=== PATIENT | male | born 1970 | race Asian ===

== ENCOUNTER 2022-09-26 08:48 | Outpatient (CLI) | payer BC, SELFPAY ==
--- NOTE | ~2022-09-26 | XR_ITS ---
EXAMINATION: XR chest 2V DATE: 09/26/2022 09:22 INDICATION: Cough TECHNIQUE: PA and lateral views of the chest are obtained. COMPARISON: None available FINDINGS: The lungs are free of acute opacities. No pleural effusion or pneumothorax. The cardiomedia stinal silhouette is normal. There is moderate thoracic spondylosis. IMPRESSION: 1. No acute cardiopulmonary abnormality. Reviewed, dictated and finalized at location B. 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
--- NOTE | ~2022-09-26 | XR_ITS ---
EXAMINATION: XR lumbar spine 2-3V DATE: 09/26/2022 09:23 INDICATION: Low back pain TECHNIQUE: Anteroposterior and lateral views of the lumbar spine, and cone-down lateral view of the l umbosacral junction were obtained. COMPARISON: None. FINDINGS: Bone alignment is normal. There is no fracture. The vertebral body heights are maintained. There is severe facet joint osteoarthritis at L5-S1. Small degenerative osteophytes project from the anterior endplates of multiple vertebral bodies. The bowel gas pattern is unremarkable. A moderate vo lume of colonic stool is present. IMPRESSION: 1. Mild to moderate lower lumbar spondylosis without acute findings. Reviewed, dictated and finalized at location B. STERED NURSE FLOAT POOL
--- NOTE | ~2022-09-26 | XR_ITS ---
EXAMINATION: XR cervical spine 4-5V DATE: 09/26/2022 09:22 INDICATION: Neck pain. TECHNIQUE: 4 views of cervical spine were obtained. COMPARISON: None. FINDINGS: There is 3 degrees levocurvature of the cervical spine. Vertebral body heights and interver tebral disc heights are normal. There is multilevel mild facet joint osteoarthritis. No central canal stenosis or prevertebral soft tissue swelling. IMPRESSION: 1. Mild cervical spondylosis. Reviewed, dictated and finalized at location A. 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
[2022-09-26 10:07] LABS: Hematocrit 46.6 % (42.0-52.0); Hemoglobin 16.4 g/dL (14.0-18.0); Mean Corpuscular HGB Conc 35.2 g/dl (32-36); Mean Corpuscular Hemoglobin 30.8 pg (26-34); Mean Corpuscular Volume 87.4 fl (80-100); Mean Platelet Volume 9.9 fl (7.4-10.4); Platelet Count Result 202 k/mm3 (150-375); Red Blood Count 5.33 M/mm3 (4.6-6.20); Red Cell Distribution Width 12.3 % (11.5-14.5)
[2022-09-26 10:21] LABS: Alanine Aminotransferase 26 U/L (6-50); Albumin Level 4.4 g/dL (3.5-5.1); Alkaline Phosphatase 86 U/L (38-126); Anion Gap 6 mmol/L (8-16); Aspartate Amino Transferase 24 U/L (17-59); Bilirubin,Total 0.5 mg/dL (0.2-1.3); Blood Urea Nitrogen 15 mg/dL (9-20); Calcium 8.7 mg/dL (8.4-10.2); Carbon Dioxide 26 mmol/L (22-30); Chloride 106 mmol/L (98-107); Cholesterol 230 mg/dL (0-200); Estimated Glomerular Filt Rate > 60; Glucose 99 mg/dL (65-110); HDL Direct 33 mg/dL; Sodium 138 mmol/L (137-145); Triglycerides 229 mg/dL (<150)
[2022-09-26 10:29] LABS: Hemoglobin A1C 5.3 % (<5.7)
[2022-09-26 10:32] LABS: LDL Cholesterol Direct 131 mg/dL
[2022-09-26 10:42] LABS: Influenza A QL RT-PCR Negative (Negative); Influenza B QL RT-PCR Negative (Negative); RSV RNA, RT-PCR Negative (Negative); SARS-CoV-2 RNA PCR Negative
[2022-09-26 10:52] LABS: Prostate Specific Antigen 0.9 ng/mL (< OR = 4.0)
[2022-09-26 10:54] LABS: Free T4 Free Thyroxine 0.98 ng/mL (0.78-2.19); Vitamin D 25 Hydroxy 24.2 ng/mL
[2022-09-26 11:01] LABS: Creatinine Urine 126.3 mg/dL
[2022-09-26 11:14] LABS: MALB Creatinine Ratio < 4.8 mg/g (0-30); Microalbumin Urine Random < 6.0 mg/L (0-16.7)
== END 2022-09-26 08:49 | disposition home or self-care (01) ==
PROVIDERS: PCP Emergency Medicine; Visit Provider Emergency Medicine
DX: Z00.00 Encounter for general adult medical examination without abnormal findings (principal); M47.816 Spondylosis without myelopathy or radiculopathy, lumbar region; M47.812 Spondylosis without myelopathy or radiculopathy, cervical region; R05.9 Cough, unspecified; J06.9 Acute upper respiratory infection, unspecified; J40 Bronchitis, not specified as acute or chronic; R32 Unspecified urinary incontinence; Z20.822 Contact with and (suspected) exposure to COVID-19
CPT/HCPCS: 36415; 71046; 72050; 72100; 80053; 80061; 82043; 82306; 83036; 84153; 84439; 84443; 85027; 87637

== ENCOUNTER → 2022-12-19 16:59 | Outpatient (CLI) | payer BC, SELFPAY ==
--- NOTE | ~2022-12-19 | XR_ITS ---
EXAMINATION: XR chest 2V Exam Date/Time: 12/19/2022 17:10 CDT HISTORY: COUGH 4 DAYS Comparison: 09/26/2022. RESULT: Lines, tubes, and devices: None. Lungs and pleura: Clear. Cardiomediastinal silhouette: Stable. Other: No acute osseous or upper abdominal finding. IMPRESSION: No acute cardiopulmonary process. Reviewed, dictated and finalized at location K.
== END ==
PROVIDERS: PCP Emergency Medicine; Visit Provider Emergency Medicine
DX: R05.9 Cough, unspecified (principal)
CPT/HCPCS: 71046

== ENCOUNTER → 2023-11-20 12:19 | Outpatient (CLI) | payer BC, SELFPAY ==
--- NOTE | ~2023-11-20 | XR_ITS ---
EXAMINATION: XR chest 2V 11/20/2023 12:34 INDICATION: Cough for 2 months PROCEDURE: 2 view chest COMPARISON: 12/19/2022 FINDINGS: The lungs are clear. The cardiomediastinal silhouette is within normal limits. There are no pleural effusions. There is no pneumothorax suspected. IMPRESSION: 1: NO ACUTE CARDIOPULMONARY DISEASE. Reviewed, dictated and finalized at location B.
== END ==
LOC: EXPCRAD 12:22
PROVIDERS: PCP Emergency Medicine; Visit Provider Emergency Medicine
DX: R05.9 Cough, unspecified (principal)
CPT/HCPCS: 71046

== ENCOUNTER 2023-12-22 10:11 | Outpatient (CLI) | payer BC, SELFPAY ==
[2023-12-22 10:55] LABS: Hematocrit 47.6 % (42.0-52.0); Hemoglobin 16.1 g/dL (14.0-18.0); Mean Corpuscular HGB Conc 33.8 g/dl (32-36); Mean Corpuscular Hemoglobin 29.8 pg (26-34); Mean Platelet Volume 9.2 fl (7.4-10.4); Platelet Count Result 287 k/mm3 (150-375); Red Blood Count 5.41 M/mm3 (4.6-6.20); Red Cell Distribution Width 12.3 % (11.5-14.5)
[2023-12-22 10:57] LABS: Appearance Urine Clear (Clear); Bilirubin Urine Negative (Negative); Blood Urine Negative (Negative); Color Urine Yellow (Yellow); Glucose Urine UA Negative (Negative); Ketones Urine Negative (Negative); Leukocyte Esterase Ur Negative LEU/UL (Negative); Nitrate Urine Negative (Negative); Protein Urine Negative (Negative); Specific Grav Ur 1.021 (1.001-1.035); Urobilinogen Urine 0.2 mg/dL (<2.0)
[2023-12-22 11:05] LABS: Add Urine Microscopic? NO
[2023-12-22 11:06] LABS: Alanine Aminotransferase 42 U/L (6-50); Albumin Level 5.1 g/dL (3.5-5.1); Alkaline Phosphatase 85 U/L (38-126); Anion Gap 9 mmol/L (4-12); Aspartate Amino Transferase 31 U/L (17-59); Bilirubin,Total 0.9 mg/dL (0.2-1.3); Blood Urea Nitrogen 24 mg/dL (9-20); Calcium 10.2 mg/dL (8.4-10.2); Carbon Dioxide 27 mmol/L (22-30); Chloride 104 mmol/L (98-107); Cholesterol 221 mg/dL (0-200); Estimated Glomerular Filt Rate > 60; Glucose 102 mg/dL (65-110); HDL Direct 42 mg/dL; Potassium 4.1 mmol/L (3.4-5.0); Sodium 140 mmol/L (137-145); Triglycerides 108 mg/dL (<150)
[2023-12-22 11:16] LABS: LDL Cholesterol Direct 153 mg/dL
[2023-12-22 11:26] LABS: Creatinine Urine 133.3 mg/dL
[2023-12-22 11:31] LABS: MALB Creatinine Ratio 4.6 mg/g (0-30); Microalbumin Urine Random 6.1 mg/L (0-16.7)
[2023-12-22 11:35] LABS: Prostate Specific Antigen 2.5 ng/mL (< OR = 4.0)
[2023-12-22 11:42] LABS: Hemoglobin A1C 5.4 % (<5.7)
[2023-12-22 11:43] LABS: Vitamin D 25 Hydroxy 29.9 ng/mL
== END 2023-12-22 10:12 | disposition home or self-care (01) ==
LOC: ANHLAB 10:13
PROVIDERS: PCP Emergency Medicine; Visit Provider Emergency Medicine
DX: E78.5 Hyperlipidemia, unspecified (principal); E55.9 Vitamin D deficiency, unspecified; R39.15 Urgency of urination; J06.9 Acute upper respiratory infection, unspecified
CPT/HCPCS: 36415; 80053; 80061; 81003; 82043; 82306; 82785; 83036; 84153; 84439; 84443; 85027; 86003

== ENCOUNTER 2024-01-09 11:51 | Outpatient (CLI) | payer BC, SELFPAY ==
[2024-01-09 12:27] LABS: Anion Gap 9 mmol/L (4-12); Blood Urea Nitrogen 19 mg/dL (9-20); Calcium 9.5 mg/dL (8.4-10.2); Carbon Dioxide 25 mmol/L (22-30); Chloride 106 mmol/L (98-107); Estimated Glomerular Filt Rate > 60; Glucose 120 mg/dL (65-110); Potassium 3.8 mmol/L (3.4-5.0); Sodium 140 mmol/L (137-145)
[2024-01-11 02:38] LABS: Protein, Total 7.2 g/dL (6.1-8.1)
[2024-01-11 15:14] LABS: Albumin 4.4 g/dL (3.8-4.8); Alpha 1 Globulin 0.2 g/dL (0.2-0.3); Alpha 2 Globulin 0.5 g/dL (0.5-0.9); Beta 1 Globulin 0.5 g/dL (0.4-0.6); Gamma Globulin 1.3 g/dL (0.8-1.7)
== END 2024-01-09 11:52 | disposition home or self-care (01) ==
LOC: ANHLAB 11:54
PROVIDERS: PCP Emergency Medicine; Visit Provider Emergency Medicine
DX: R79.9 Abnormal finding of blood chemistry, unspecified (principal); R77.9 Abnormality of plasma protein, unspecified
CPT/HCPCS: 36415; 80048; 84155; 84165

== ENCOUNTER 2025-01-02 10:09 | Outpatient (CLI) | payer BC, SELFPAY ==
--- OUTSIDE RECORDS SUMMARY | 2025-01-02 10:24 | XMS_ITS | Continuity of Care Document ---
Author Organization [facility] Address [address] [place] [phone] Phone Care Team Providers Care Pool Finisher Name Role Phone Kendall Galaviz MD Unavailable Unavailable Allergies, Adverse Reactions, Alerts Substance Reaction Status Criticality No Known Allergies Active No Inform ation Medications Medication Instructions Dosage Effective Dates (start - stop) Status Comments miconazole nitrate 2 % Topical Cream apply by topical route 2 times every day to the affected area(s) in the morning and evening 0.00 - Active Vitamin D 2 50,000unit Oral CAPSULE take 1 capsule by oral route every week - Active ibuprofen 200 mg tablet take 1 tablet by oral route every 6 hours as needed with food 200 MG - Active Procedures Procedure Date Offic Cons New/estab Mod Advance Directives Directive Yes / No Effective Date File Name No Information Encounters Encounter Description Practice Location Reason(s) For Visit Diagnoses Date Provider Providers Copied on Encounter [facility], [address] [place] [address], [id number] tel:[phone] [facility] No Information 9 Anastacia Argueta. [address] [place] [address], [id number] , [place]. tel:[phone] Offic Cons [facility]estab [facility], [address] [place] [address], [id number] tel:[phone] [facility] Rash, oth nonspecific skin eruption 3 Anastacia Argueta. [address] [place] [address], [id number] , [place]. tel:[phone] Family History Family Member Type Diagnosis Age At Onset No Information Payers Payer name Insurance type Covered green party ID Authoriza tion(s) No Information Social History Type Description Quantity Date Captured Comments Sex Male Smoking Status No Information Chief Complaint And Reason For Visit No Information Reason For Referral Reason For Referral No Information History Of Present Illness Encounter Date Complaint History Of Prese nt Illness No Information Functional Status Date Functional Assessmen t No Information Instructions Date Instruction Additional Infor mation No Information Assessments Type Assessment Date No Information Patient Care Teams Name Effective Dates (start - stop) Status Members No Information
--- OUTSIDE RECORDS SUMMARY | 2025-01-02 10:24 | XMS_ITS | Clinical Summary ---
Author Organization [facility] Address [facility] [place] [address] Care Team Providers Care Mold Preparer Name Role Phone Silviano Wise MD Primary Care Provider [phone] Allergies No known active allergies Medications cyclobenzaprine (FLEXERIL) 5 MG tablet every 12 (twelve) hours. Active tamsulosin (FLOMAX) 0.4 MG Cap tamsulosin 0.4 mg capsule TAKE 1 CAPSULE BY MOUTH ONCE DAILY AT BEDTIME FOR 30 DAYS Active omega-3 fatty acid (FISH OIL) 500 MG capsule Take 1 capsule (500 mg total) by mouth daily. Active Active Problems No known active problems Family History Medical History Relation Comments COPD Father Diabetes Sister pre-diabetes Relation Status Comments Daughter 1 Alive Daughter 2 Alive Daughter 3 Alive Father (Age 72) of lung p adenikelems Mother (Age 69) in sleep Sister Son Alive Social History Tobacco Use Types Packs/Day Years Used Date Smoking Tobacco: Never Smokeless Tobacco: Never Tobacco Cessation:Counseling Given: No Comments:not a smoker Alcohol Use Standard Drinks/Week Comments Never 0 (1 standard drink = 0.6 oz pur e alcohol) AUDIT-C Answer Date Recorded Q1: How often do you have a drink containing alc ohol? 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 Gender Identity Not on file Sexual Orientation Not on file Last Filed Vital Signs Vital Sign Reading Time Taken Comments Blood Pressure 145/79 12/13/2023 9:19 AM CDT Pulse 94 12/13/2023 9:19 AM CDT Temperature 37.3 C (99.1 F) 12/13/2023 9:19 AM CDT Respiratory Rate 20 12/13/2023 9:19 AM CDT Oxygen Saturation 98% 12/13/2023 9:19 AM CDT Inhaled Oxygen Concentration - - Weight 99.8 kg (220 lb) 12/13/2023 9:19 AM CDT Height 185.4 cm (6' 1 ) 12/13/2023 9:19 AM CDT Body Mass Index 29.03 12/13/2023 9:19 AM CDT Plan of Treatment Health Maintenance Due Date Last Done Comments Colorectal Cancer Screening Colonoscopy (10 Years) 1968 Annual Physical 1971 Hepatitis C 1986 DTaP, Tdap and Td Vaccines ( 1 - Tdap) 1987 Hepatitis B Vaccines (1 of 3 - 19+ 3-dose series) 1987 Pneumococcal Vaccine: 50+ Years (1 of 1 - PCV) 2018 Zoster Vaccines (1 of 2) 2018 COVID-19 Vaccine (3 - 2023-2 5 season) 2024 01/08/2021, 12/06/2020 Meningococcal B Vaccine Aged Out No l onger eligible based on patient's age to complete this topic Meningococcal Vaccine Aged Out No krystina dustin eligible based on patient's age to complete this topic RSV Immunizations Under 20 Months Aged Out No longer eligible b ased on patient's age to complete this topic Medical Devices Implanted Type Area Sharepoint Admin Device Identifier Shelf Expiration Date Model / Serial / Lot K-Wire 0.035 Implanted:Qty: 1 on 03/12/2021 by Femi Arndt MD at [facility] Wire Left: Finger [employer] 10/02/2023 Insurance Care Teams Mold Preparer Relationship Specialty Start Date End Date Silviano Wise MD [address] [place] [id number] PCP - General FAMILY PRACTICE 12/13/23
[2025-01-02 10:48] LABS: Add Urine Microscopic? NO; Appearance Urine Clear (Clear); Bilirubin Urine Negative (Negative); Blood Urine Negative (Negative); Color Urine Yellow (Yellow); Glucose Urine UA Negative (Negative); Ketones Urine Negative (Negative); Leukocyte Esterase Ur Negative LEU/UL (Negative); Nitrate Urine Negative (Negative); Protein Urine Negative (Negative); Specific Grav Ur 1.019 (1.001-1.035); Urobilinogen Urine 0.2 mg/dL (<2.0)
[2025-01-02 10:55] LABS: Hematocrit 44.5 % (42.0-52.0); Mean Corpuscular HGB Conc 33.7 g/dl (32-36); Mean Corpuscular Hemoglobin 29.9 pg (26-34); Mean Corpuscular Volume 88.6 fl (80-100); Platelet Count Result 187 k/mm3 (150-375); Red Blood Count 5.02 M/mm3 (4.6-6.20)
[2025-01-02 11:10] LABS: Alanine Aminotransferase 30 U/L (6-50); Albumin Level 4.7 g/dL (3.5-5.1); Alkaline Phosphatase 81 U/L (38-126); Anion Gap 9 mmol/L (4-12); Aspartate Amino Transferase 25 U/L (17-59); Blood Urea Nitrogen 20 mg/dL (9-20); Calcium 8.8 mg/dL (8.4-10.2); Carbon Dioxide 25 mmol/L (22-30); Chloride 105 mmol/L (98-107); Cholesterol 163 mg/dL (0-200); Estimated Glomerular Filt Rate > 60; Glucose 97 mg/dL (65-110); HDL Direct 38 mg/dL; Potassium 4.1 mmol/L (3.4-5.0); Sodium 139 mmol/L (137-145); Triglycerides 100 mg/dL (<150)
[2025-01-02 11:21] LABS: LDL Cholesterol Direct 91 mg/dL
[2025-01-02 11:25] LABS: Free T4 Free Thyroxine 0.93 ng/dL (0.78-2.19); Vitamin D 25 Hydroxy 28.1 ng/mL
[2025-01-02 11:32] LABS: Creatinine Urine 97.3 mg/dL
[2025-01-02 11:42] LABS: Prostate Specific Antigen 1.1 ng/mL (< OR = 4.0)
[2025-01-02 11:43] LABS: MALB Creatinine Ratio < 6.2 mg/g (0-30); Microalbumin Urine Random < 6.0 mg/L (0-16.7)
[2025-01-02 12:56] LABS: Hemoglobin A1C 5.5 % (<5.7)
== END 2025-01-02 10:10 | disposition home or self-care (01) ==
LOC: ANHLAB 10:10
PROVIDERS: PCP Emergency Medicine; Visit Provider Emergency Medicine
DX: M54.50 Low back pain, unspecified (principal); Z00.00 Encounter for general adult medical examination without abnormal findings; E78.5 Hyperlipidemia, unspecified
CPT/HCPCS: 36415; 80053; 80061; 81003; 82043; 82306; 83036; 84153; 84439; 84443; 85027

== ENCOUNTER 2025-01-21 16:29 | Outpatient (CLI) | payer BC, SELFPAY ==
--- NOTE | ~2025-01-21 | XR_ITS ---
CHEST RADIOGRAPH, PA AND LATERAL CLINICAL HISTORY: Cough and congestion . COMPARISON: 11/20/2023 TECHNIQUE: PA and lateral views of the chest. FINDINGS The cardiomediastinal silhouette is unremarkable. The lungs are clear. Visualized osseous structures and soft tissues are unremarkable. IMPRESSION: No focal infiltrate or effusion. Reviewed, dictated and finalized at location A.
--- OUTSIDE RECORDS SUMMARY | 2025-01-21 16:35 | XMS_ITS | CONTINUITY OF CARE DOCUMENT ---
Author Name nicolette will Address Unknown Organization [facility] Address [address] [place] [address] Phone [phone] Care Team Providers Care Desk Operator Name Role Phone Brice Nickerson MD Unavailable [phone] ALEXIA ROBERSON MD Unavailable [phone] INSURANCE PROVIDERS Payer name Policy type / Coverage type [place] red libertarian ID [facility] [id number]
--- OUTSIDE RECORDS SUMMARY | 2025-01-21 16:35 | XMS_ITS | Continuity of Care Document ---
Author Organization [facility] Address [address] [place] [phone] Phone Care Team Providers Care Suede Cleaner Name Role Phone Kendall Galaviz MD Unavailable [...] Diagnoses Date Provider Providers Copied on Encounter [facility] [employer] [facility], [address] [place] [address], [id number] tel:[phone] [facility] No Information 9 Anastacia Argueta. [address] [place] [address], [id number] , [place]. tel:[phone] Offic Cons New/estab Mod [facility] [employer] [facility], [address] [place] [address], [id number] tel:[phone] [facility] Rash, oth nonspecific skin eruption 3 Anastacia Argueta. [address] [place] [address], [id number] , [place]. tel:[phone] Family History Family Member Type Diagnosis Age At Onset No Information Payers Payer name Insurance type Covered alliance party ID Authoriza tion(s) No Information Social [...]
[2025-01-23 16:53] LABS: Alternaria alternata IgE <0.10 kU/L; Alternaria alternata IgE Class 0; Aspergillus fumigatus IgE <0.10 kU/L; Bermuda Grass (G2) IgE <0.10 kU/L; Bermuda Grass (G2) IgE Class 0; Cat Dander IgE <0.10 kU/L; Cat Dander IgE Class 0; Cladosporium herbarum IgE <0.10 kU/L; Cladosporium herbarum IgE Clas 0; Cockroach IgE <0.10 kU/L; Cockroach IgE Clas 0; Common Ragweed IgE Class 0; Cottonwood IgE <0.10 kU/L; Dermatophagoides Farinae Class 0; Dermatophagoides Pterony Class 0; Dermatophagoides Pteronyssinus <0.10 kU/L; Dog Dander IgE <0.10 kU/L; Elm (T8) IgE <0.10 kU/L; Elm (T8) IgE Class 0; Hickory/Pecan IgE <0.10 kU/L; Hickory/Pecan IgE Class 0; Immunoglobulin E 29 kU/L (<OR=114); Maple Box Elder IgE Class 0; Mountain Cedar IgE <0.10 kU/L; Mountain Cedar IgE Class 0; Mouse Urine Proteins IgE <0.10 kU/L; Mouse Urine Proteins IgE Class 0; Oak IgE <0.10 kU/L; Peniciliium notatum class 0; Penicillium notatum (M1) IgE <0.10 kU/L; Rough Marsh <0.10 kU/L; Rough Marsh Elder Class 0; Rough Pigweed (W14) IgE <0.10 kU/L; Rough Pigweed (W14) IgE Class 0; Russian Thistle <0.10 kU/L; Sycamore IgE <0.10 kU/L; Sycamore IgE Class 0; Timothy Grass IgE <0.10 kU/L; Timothy Grass IgE Class 0; Walnut Tree IgE <0.10 kU/L; Walnut Tree IgE Class 0; White Ash IgE Class 0; White Mulberry IgE <0.10 kU/L; White Mulberry IgE Class 0
[2025-01-23 17:04] LABS: Almond (F20) IgE <0.10 kU/L; Brazil Nut (f18) <0.10 kU/L; Brazil Nut (f18) Class 0; Cashew Nut (F202) IgE <0.10 kU/L; Cashew Nut (F202) IgE Class 0; Codfish (F3) IgE <0.10 kU/L; Codfish (F3) IgE Class 0; Cow's Milk (F2) IgE <0.10 kU/L; Cow's Milk (F2) IgE Class 0; Egg White (F1) IgE <0.10 kU/L; Egg White (F1) IgE Class 0; Hazelnut (F17) IgE 0.11 kU/L; Hazelnut (F17) IgE Class 0/1; Macadamia Nut (rf345) <0.10 kU/L; Macadamia Nut (rf345) Class 0; Peanut (F13) IgE <0.10 kU/L; Peanut (F13) IgE Class 0; Salmon (F41) IgE <0.10 kU/L; Salmon (F41) IgE Class 0; Scallop (F338) IgE <0.10 kU/L; Scallop (F338) IgE Class 0; Sesame Seed <0.10 kU/L; Shrimp (F24) IgE <0.10 kU/L; Soybean (F14) IgE <0.10 kU/L; Soybean (F14) IgE Class 0; Tuna (F40) <0.10 kU/L; Tuna (F40) Class 0; Walnut (F256) IgE <0.10 kU/L; Walnut (F256) IgE Class 0; Wheat (F4) IgE <0.10 kU/L; Wheat (F4) IgE Class 0
== END 2025-01-21 16:30 | disposition home or self-care (01) ==
LOC: ANHLAB 16:33
PROVIDERS: PCP Emergency Medicine; Visit Provider Emergency Medicine
DX: R05.9 Cough, unspecified (principal)
CPT/HCPCS: 36415; 71046; 82785; 86003

== ENCOUNTER 2025-02-07 11:49 | Emergency (ER) | payer BC, SELFPAY ==
--- NOTE | ~2025-02-07 | CT_ITS ---
EXAMINATION: CTA chest PE protocol DATE: 02/07/2025 13:55 INDICATION: Cough and chest tightness TECHNIQUE: Computed tomography (CT) pulmonary angiogram of the chest was performed with 100 mL Omnipa que-350 intravenous contrast. Additional 3D reconstructions utilizing coronal maximum intensity proje ction (MIP) were performed. Automated exposure control and iterative reconstruction technique were em ployed. The dose-length product was 12.47 mGy-cm. COMPARISON: None FINDINGS: No pulmonary embolism. Sensitivity decreased in some of the smaller subsegmental pulmonary arteries i n the mid to lower lungs due to mild to moderate basilar predominant respiratory motion artifact hear t size is normal. No pneumonia, pulmonary edema, pleural effusion or pneumothorax. No pericardial eff usion. Vascular is normal in caliber. No pathologically enlarged thoracic lymphadenopathy./Upper abdo men is unremarkable. Mild thoracic spondylosis with chronic mild anterior wedging of a few mid to low er thoracic vertebral bodies. Mild thoracic spondylosis with bridging osteophytes at multiple levels consistent with diffuse idiopathic skeletal hyperostosis (DISH). IMPRESSION: 1. No pulmonary embolism or other acute cardiopulmonary disease. Reviewed, dictated and finalized at location A.
--- OUTSIDE RECORDS SUMMARY | 2025-02-07 11:51 | XMS_ITS | Continuity of Care Document ---
Author Organization [facility] Address [address] [place] [phone] Phone Care Team Providers Care Document Management Analyst Name Role Phone Kendall Galaviz MD Unavailable [...] Diagnoses Date Provider Providers Copied on Encounter [facility], [address] [place] [address], [id number] tel:[phone] [facility] No Information 9 Anastacia Argueta. [address] [place] [address], [id number] , [place]. tel:[phone] Offic Cons New/estab Mod [facility], [address] [place] [address], [id number] tel:[phone] [facility] Rash, oth nonspecific skin eruption 3 Anastacia Argueta. [address] [place] [address], [id number] , [place]. tel:[phone] Family History Family Member Type Diagnosis Age At Onset No Information Payers Payer name Insurance type Covered libertarian ID Authoriza tion(s) No Information Social History [...]
[2025-02-07 11:59] VITALS: BP 157/96; PULSE 86; RESP 18; TEMP 36.5; O2SAT 98
[2025-02-07 12:19] VITALS: O2SAT 99
--- OUTSIDE RECORDS SUMMARY | 2025-02-07 12:43 | XMS_ITS | Continuity of Care Document ---
Author Organization [facility] Address [address] [place] [phone] Phone Care Team Providers Care Pain Management Specialist Name Role Phone Kendall Galaviz MD Unavailable [...] Diagnoses Date Provider Providers Copied on Encounter [facility] [employer] [facility], [address] [place] [address], [id number] tel:[phone] [facility] No Information 9 Anastacia Argueta. [address] [place] [address], [id number] , [place]. tel:[phone] Offic Cons New/estab Mod [facility] [employer] [facility], [address] [place] [address], [id number] tel:[phone] [facility] Rash, oth nonspecific skin eruption 3 Anastacia Argueta. [address] [place] [address], [id number] , [place]. tel:[phone] Family History Family Member Type Diagnosis Age At Onset No Information Payers Payer name Insurance type Covered republican ID Authoriza tion(s) No Information Social History [...]
--- NOTE | 2025-02-07 12:54 | ECG_ITS ---
Test Date: 2025-02-07 13:12:20 Measurements Intervals [place] Rate: 65 P: 42 OR: 173 QRS: 18 QRSD: 93 T: 37 QT: 379 QTc: 394 Interpretive Statements SINUS RHYTHM INCOMPLETE RIGHT BUNDLE BRANCH BLOCK BORDERLINE ECG No previous ECG available for comparison Electronically Signed On 02-07-2025 13:19:15 CDT by Iban Miguel D.O.
--- NOTE | 2025-02-07 13:11 | ED_ITS ---
HPI - General Adult General Chief complaint: Upper Respiratory Infection Stated complaint: Cough x1 month Time Seen by Provider: 02/07/25 12:37 History of Present Illness HPI narrative: 54-year-old male presents emergency department for evaluation for persistent cough that has been ongoing for greater than 1 month. Patient described chest tightness back pain that has been present with a cough for greater than 1 month. Patient did have allergy testing which showed he had a negative allergy profile. Patient has been on a course of antibiotics. Patient called the primary care physician patient was referred back to the emergency department for further workup. Related Data Allergies Allergy/AdvReac Type Severity Reaction Status Date / Time No Known Allergies Allergy Verified 02/07/25 12:04 Review of Systems 2 Review of Systems: All systems reviewed & are unremarkable except as noted in HPI and below Exam 2 Narrative: APPEARANCE: Well appearing, no pain, no distress, well-nourished. HEAD: normocephalic, atraumatic. EYES: PERRLA/EOMI, conjunctivae clear. NOSE: Normal no drainage EARS:TMS clear with good light reflex. THROAT: Pharynx clear, no exudate. NECK: Supple. No adenopathy, no masses. RESPIRATORY: Cough with talking CARDIOVASCULAR: Regular rate and rhythm without murmurs rubs or gallops. ABDOMINAL: Soft, nontender, nondistended, normal bowel sounds MUSCULOSKELETAL: Moves all extremities. Strength/ROM intact, No edema, No calf tenderness. NEURO: Alert. Cranial nerves II through XII intact. Good gait. Good coordination SKIN: Warm, dry. Normal Color Course Vital Signs Vital signs: Vital Signs Temperature 97.7 F 02/07/25 11:59 Pulse Rate 86 02/07/25 11:59 Respiratory Rate 18 02/07/25 11:59 Blood Pressure 157/96 H 02/07/25 11:59 Pulse Oximetry 98 02/07/25 11:59 Oxygen Delivery Room Air 02/07/25 11:59 Temperature 97.7 F 02/07/25 11:59 Pulse Rate 66 02/07/25 15:13 Respiratory Rate 18 02/07/25 15:13 Blood Pressure 142/94 H 02/07/25 15:13 Pulse Oximetry 99 02/07/25 15:13 Oxygen Delivery Room Air 02/07/25 12:19 Medical Decision Making [facility] Narrative Medical decision making narrative: 54-year-old male presents emergency department for evaluation for 1 month of cough congestion and chest tightness. Patient is currently afebrile with no leukocytosis hemoglobin of 14.7. Patient has an INR of 1.0. Patient has no acute abnormalities on his CMP and a negative troponin. Patient's symptoms have been going on for much longer than 6 hours. CTA was negative for pulmonary embolism. CTA was also negative for atypical pneumonia. Patient was encouraged of close follow-up with his primary care physician. Differential Diagnosis Differential Diagnosis: Go, RSV influenza, pneumonia, pulmonary embolism, pneumonitis, postnasal drip Vital Signs Vital Signs: Vital Signs Temperature 97.7 F 02/07/25 11:59 Pulse Rate 86 02/07/25 11:59 Respiratory Rate 18 02/07/25 11:59 Blood Pressure 157/96 H 02/07/25 11:59 Pulse Oximetry 98 02/07/25 11:59 Oxygen Delivery Room Air 02/07/25 11:59 Temperature 97.7 F 02/07/25 11:59 Pulse Rate 66 02/07/25 15:13 Respiratory Rate 18 02/07/25 15:13 Blood Pressure 142/94 H 02/07/25 15:13 Pulse Oximetry 99 02/07/25 15:13 Oxygen Delivery Room Air 02/07/25 12:19 Lab Data Lab results reviewed: Yes I reviewed the patient's lab results. 02/07/25 13:07 02/07/25 13:07 Labs: Lab Results 02/07/25 Range/Units 13:07 WBC 5.5 (4.5-10.0) K/mm3 RBC 4.94 (4.6-6.20) M/mm3 Hgb 14.7 (14.0-18.0) g/dL Hct 43.0 (42.0-52.0) % MCV 87.0 (80-100) fl MCH 29.8 (26-34) pg MCHC 34.2 (32-36) g/dl RDW 12.1 (11.5-14.5) % Plt Count 180 (150-375) k/mm3 MPV 10.0 (7.4-10.4) fl Immature Gran % (Auto) 0.4 (0-0.5) % Neut % (Auto) 63.3 (45.5-73.1) % Lymph % (Auto) 24.3 (18.3-44.2) % [place] % (Auto) 9.1 H (2.6-8.5) % Eos % (Auto) 2.4 (0-4.4) % Baso % (Auto) 0.5 (0.2-1.2) % Lymph # (Auto) 1.33 (0.9-3.2) K/mm3 [place] # (Auto) 0.5 (0.1-0.6) K/mm3 Eos # (Auto) 0.1 (0-0.3) K/mm3 Baso # (Auto) 0.0 (0.0-0.1) K/mm3 Abs Immat Gran (auto) 0.02 (0.00-0.031) K/mm3 Absolute Neuts (auto) 3.5 (1.3-6.7) K/mm3 Absolute Nucleated RBC 0.000 (0.0-0.012) K/mm3 Nucleated RBC % 0.0 (0.0-0.2) % PT 13.0 (11.1-14.7) Seconds INR 1.0 APTT 27.6 (22.3-36.8) Seconds Sodium 138 (137-145) mmol/L Potassium 3.9 (3.4-5.0) mmol/L Chloride 105 (98-107) mmol/L Carbon Dioxide 24 (22-30) mmol/L Anion Gap 9 (4-12) mmol/L BUN 20 (9-20) mg/dL Creatinine 1.05 (0.7-1.3) mg/dL Estim Creat Clear Calc 79 ml/min Estimated GFR > 60 (59 - ) Glucose 110 (65-110) mg/dL Calcium 9.0 (8.4-10.2) mg/dL Total Bilirubin 0.6 (0.2-1.3) mg/dL AST 29 (17-59) U/L ALT 25 (6-50) U/L Alkaline Phosphatase 75 (38-126) U/L Troponin I < 0.012 (0.000-0.034) ng/mL Total Protein 7.6 (6.3-8.2) g/dL Albumin 4.4 (3.5-5.1) g/dL Imaging Data Radiologist's impression: Impressions Chest CTA 02/07/25 14:48 IMPRESSION: 1. No pulmonary embolism or other acute cardiopulmonary disease. Discharge Plan Discharge Clinical Impression: Cough Patient Disposition: Home Condition: Stable Instructions: Antibiotic Form Additional Instructions: Your CT scan showed no evidence of pulmonary embolism. Tessalon Perles for cough. Mild decongestant if you are having any postnasal drip. Have close follow-up with your primary care physician for additional outpatient testing. Patient Language: Yi Prescriptions: New benzonatate 100 mg capsule 100 mg PO TID PRN (Reason: cough) Qty: 14 0RF Follow-up/Referrals: Silviano Wise MD [Primary Care Provider] -
[2025-02-07 13:19] LABS: Basophils Percent Auto 0.5 % (0.2-1.2); Eosinophils Absolute Auto 0.1 K/mm3 (0-0.3); Eosinophils Percent Auto 2.4 % (0-4.4); Hemoglobin 14.7 g/dL (14.0-18.0); Immature Granulocyte Absolute 0.02 K/mm3 (0.00-0.031); Immature Granulocyte Percent A 0.4 % (0-0.5); Lymphocytes Absolute Auto 1.33 K/mm3 (0.9-3.2); Lymphocytes Percent Auto 24.3 % (18.3-44.2); Mean Corpuscular HGB Conc 34.2 g/dl (32-36); Mean Corpuscular Hemoglobin 29.8 pg (26-34); Monocytes Absolute Auto 0.5 K/mm3 (0.1-0.6); Monocytes Percent Auto 9.1 % (2.6-8.5); Neutrophils Absolute Auto 3.5 K/mm3 (1.3-6.7); Neutrophils Percent Auto 63.3 % (45.5-73.1); Platelet Count Result 180 k/mm3 (150-375); Red Blood Count 4.94 M/mm3 (4.6-6.20); Red Cell Distribution Width 12.1 % (11.5-14.5); White Blood Count 5.5 K/mm3 (4.5-10.0)
[2025-02-07 13:30] LABS: Alanine Aminotransferase 25 U/L (6-50); Albumin Level 4.4 g/dL (3.5-5.1); Alkaline Phosphatase 75 U/L (38-126); Anion Gap 9 mmol/L (4-12); Aspartate Amino Transferase 29 U/L (17-59); Bilirubin,Total 0.6 mg/dL (0.2-1.3); Blood Urea Nitrogen 20 mg/dL (9-20); Carbon Dioxide 24 mmol/L (22-30); Chloride 105 mmol/L (98-107); Estimated CRCL calculation 79 ml/min; Estimated Glomerular Filt Rate > 60; Glucose 110 mg/dL (65-110); Potassium 3.9 mmol/L (3.4-5.0); Sodium 138 mmol/L (137-145); Total Protein 7.6 g/dL (6.3-8.2)
[2025-02-07 13:33] LABS: Partial Thromboplastin Time 27.6 Seconds (22.3-36.8)
[2025-02-07 13:42] LABS: Troponin I < 0.012 ng/mL (0.000-0.034)
[2025-02-07 15:13] VITALS: BP 142/94; PULSE 66; RESP 18; O2SAT 99
== END 2025-02-07 15:14 | disposition home or self-care (01) ==
PROVIDERS: Emergency Provider Emergency Medicine; PCP Emergency Medicine
DX: R05.9 Cough, unspecified (principal); I45.10 Unspecified right bundle-branch block
CPT/HCPCS: 36415; 71275; 80053; 84484; 85025; 85610; 85730; 93005; 99284; Q9967